=== PATIENT | male | born 1965 | race African-American/Black ===

== ENCOUNTER 2018-07-30 16:43 | Emergency (ER) | payer OTHER ==
[~2018-07-30] VITALS: Ht 165.1 cm; Wt 81.8 kg
[2018-07-30 16:48] VITALS: Ht 165.1 cm; Wt 81.8 kg
--- NOTE | 2018-07-30 16:58 | ERD ---
ER Documentation Chief Complaint Chief Complaint SI X3DAYS WORSE TODAY WITH PLAN TO "CALL THE POLICE SO THEY COULD DO IT". HPI 52-year-old male with a history of PTSD, depression and schizoaffective disorder presents to the ED complaining of worsening, feelings of hopelessness, suicidal ideations with plan for suicide by police and homicidal ideations to hurt his neighbor. Denies auditory or visual hallucinations. Otherwise asymptomatic. Denies headache or neck pain. No chest pain, palpitations or shortness of breath. No abdominal pain, nausea vomiting. No dysuria polyuria. No fevers or chills. Admits to noncompliance of medications. ROS All systems reviewed and are negative except as per history of present illness. Medications Home Meds Reported Medications Ziprasidone* (Geodon*) 60 Mg Capsule, 60 MG PO BID, CAP 07/30/18 Mirtazapine* (Remeron*) 30 Mg Tablet, 30 MG PO HS, TAB 07/30/18 Allergies Allergies: Coded Allergies: No Known Allergy (Unverified , 07/30/18) PMhx/Soc Reviewed History of Surgery: No Anesthesia Reaction: No Hx Neurological Disorder: No Hx Respiratory Disorders: No Hx Cardiac Disorders: No Hx Psychiatric Problems: Yes (PTSD, schizoaffective disorder, depression) Hx Alcohol Use: Yes (Occasional) Hx Substance Use: No Hx Tobacco Use: No FmHx No family history relevant to presenting complaint Physical Exam Vitals Vital Signs Date Temp Pulse Resp B/P (MAP) Pulse Ox O2 O2 Flow FiO2 Time Delivery Rate 07/30/18 98.3 94 20 120/71 97 16:48 (87) Physical Exam Const: Moderate distress, anxious Head: Atraumatic Eyes: Normal Conjunctiva ENT: Normal External Ears, Nose and Mouth. Neck: Full range of motion. No meningismus. Resp: Clear to auscultation bilaterally Cardio: Regular rate and rhythm, no murmurs Abd: Soft, non tender, non distended. Normal bowel sounds Skin: No petechiae or rashes Back: No midline or flank tenderness Ext: No cyanosis, or edema Neur: Awake and alert Psych: Anxious, depressed. Result Diagram: 07/30/18 1715 07/30/18 1715 Results 24 hrs Laboratory Tests Test 07/30/18 17:15 White Blood Count 6.2 10^3/ul Red Blood Count 5.69 10^6/ul Hemoglobin 13.3 g/dl Hematocrit 43.3 % Mean Corpuscular Volume 76.1 fl Mean Corpuscular Hemoglobin 23.4 pg Mean Corpuscular Hemoglobin Concent 30.7 g/dl Red Cell Distribution Width 13.8 % Platelet Count 305 10^3/UL Mean Platelet Volume 10.2 fl Immature Granulocytes % 0.300 % Neutrophils % 56.2 % Lymphocytes % 28.4 % Monocytes % 12.0 % Eosinophils % 2.6 % Basophils % 0.5 % Nucleated Red Blood Cells % 0.0 /100WBC Immature Granulocytes # 0.020 10^3/ul Neutrophils # 3.5 10^3/ul Lymphocytes # 1.8 10^3/ul Monocytes # 0.8 10^3/ul Eosinophils # 0.2 10^3/ul Basophils # 0.0 10^3/ul Nucleated Red Blood Cells # 0.0 10^3/ul Sodium Level 141 mmol/L Potassium Level 3.9 mmol/L Chloride Level 102 mmol/L Carbon Dioxide Level 31 mmol/L Anion Gap 8 Blood Urea Nitrogen 24 mg/dl Creatinine 1.17 mg/dl Est Glomerular Filtrat Rate mL/min > 60 mL/min Glucose Level 108 mg/dl Calcium Level 9.3 mg/dl Total Bilirubin 0.5 mg/dl Direct Bilirubin 0.00 mg/dl Indirect Bilirubin 0.5 mg/dl Aspartate Amino Transf (AST/SGOT) 40 IU/L Alanine Aminotransferase (ALT/SGPT) 31 IU/L Alkaline Phosphatase 78 IU/L Total Protein 7.3 g/dl Albumin 4.3 g/dl Globulin 3.00 g/dl Albumin/Globulin Ratio 1.43 Salicylates Level < 1.0 mg/dl Acetaminophen Level < 10.0 ug/ml Ethyl Alcohol Level < 10.0 mg/dl Procedures/MDM DOCUMENTS REVIEWED: ED nurse, no prior records [employer]ISION [employer]-year-old male with a history of PTSD, depression and schizoaffective disorder presents to the ED complaining of worsening, feelings of hopelessness, suicidal ideations with plan for suicide by police and homicidal ideations to hurt his neighbor. Patient presents with symptomatology consistent with decompensation of previously diagnosed psychiatric disease. Based on history, physical exam and appropriate lab tests, I appreciate no evidence of significant life threatening injury or illness that precludes psychiatric hospitalization. There are no toxic, infectious, metabolic, BALANCER SCALE or other unstable co-morbidities. Patient is thus medically clear for psychiatric admission. In regards to the psychiatric complaints, this patient has clear evidence of high risk psychiatric symptoms with significant risk for decompensation and [address] Larsen of tele-psychiatry. PET team evaluation is pending. CALLS/CONSULTS: Time 20:17, Dr. Larsen, Telehealth Psychiatry. Recommends 5150. Therapy transferred to the oncoming physician. Disposition is pending PET team evaluation and bed availability. PATIENT CARE TRANSITIONED: Time: [], []. Departure Diagnosis: Primary Impression: Suicidal ideation Additional Impressions: Homicidal ideations Schizoaffective disorder Schizoaffective disorder type: unspecified Qualified Codes: F25.9 - Schiz oaffective disorder, unspecified Condition: Serious CHARLENE BARRIENTOS MD Jul 30, 2018 16:58
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
[2018-07-30] MEDS ORDERED: ZIPR60CA2 PO (21:04)
[2018-07-30] MEDS ORDERED: MIRT30TA PO (21:04)
[2018-07-31] MEDS ORDERED: LORAZEPAM 1 MG TAB PO PRN (01:00)
[2018-07-31 01:20] VITALS: BP 119/77; PULSE 78; RESP 16
--- NOTE | 2018-07-31 07:09 | EN ---
Date/Time of Note Date/Time of Note DATE: 07/31/18 TIME: 07:09 ER Progress Note Psychiatric Observation Note: Indication: Suicidal ideation Duration: Greater than 14 hours Family history: As documented in original HPI The patient was observed with serial exams over the above timeframe. The patient continued to be well-appearing, and observation continued without complication. All other needs have been met during emergency department stay. Routine psychiatric medications ordered: Yes, see EMR Ativan 1 every 6 as needed Hold status: Currently on 5150 hold Placement status: Currently pending placement SRUTHI SILVEIRA MD Jul 31, 2018 07:09
--- NOTE | 2018-07-31 11:23 | CONS ---
Date/Time of Note Date/Time of Note DATE: 07/31/18 TIME: 11:23 Consult Date/Type/Reason Admit Date Type of Consult Psych Objective Patient Appearance: Disheveled Voice Loudness: Moderately Soft/Quiet Mood and Affect Description: Anxious Mood or Affect: Cooperative Speech Pattern: Clear Thought Process: Intact Hallucination Type: Auditory Assessment/Plan Recommendations Involuntary psych with [facility] KATHERIN OCAMPO NP Jul 31, 2018 11:23
== END 2018-07-31 15:10 | disposition home or self-care (01) ==
LOC: E/R 16:43
DX: R45.850 Homicidal ideations (principal); F25.9 Schizoaffective disorder, unspecified
CPT/HCPCS: 80053; 80307; 81003; 85025; Z7502; Z7610; 99283